=== PATIENT | male | born 1955 | race Caucasian/White ===

== ENCOUNTER 2020-12-08 06:24 | Day surgery (SDC) | payer OTHER ==
[2020-12-07 09:58] LABS: COVID AG,FIA SOURCE NASOPHARYNGEAL
[~2020-12-08] VITALS: Ht 165.1 cm; Wt 74.5 kg
[~2020-12-08 06:24] MED LIST: SODIUM CHLORIDE 0.9% 1,000 ML ONE
[2020-12-08] MEDS ORDERED: LIDOCAINE 2% 30 ML JELLY TP ONE (06:25)
[2020-12-08] MEDS ORDERED: BENZOCAINE 20% 50 MCG/SPRAY 57 GM TP ONE (06:25)
[2020-12-08] MEDS ORDERED: ALBUTEROL SULFATE 2.5 MG/0.5 ML NEB SOLUTION NEB ONE (06:25)
[2020-12-08] MEDS ORDERED: SODIUM CHLORIDE 0.9% 1,000 ML IV ONE (06:30)
[2020-12-08] MEDS ORDERED: MIDAZOLAM HCL 5 MG/ML VIAL ONE (08:09)
[2020-12-08] MEDS ORDERED: FentaNYL CITRATE PF 100 MCG/2 ML VIAL ONE (08:09)
[2020-12-08] MEDS ORDERED: SEVE800 PO (08:27)
[2020-12-08] MEDS ORDERED: METO25 PO (08:27)
[2020-12-08] MEDS ORDERED: ATOR40TA28 PO (08:27)
[2020-12-08] MEDS ORDERED: MONT-35 PO (08:27)
[2020-12-08] MEDS ORDERED: FURO-151 PO (08:27)
[2020-12-08] MEDS ORDERED: ALLO100T PO (08:27)
[2020-12-08] MEDS ORDERED: AMLO10TA55 PO (08:27)
[2020-12-08] MEDS ORDERED: ASPI81TA39 PO (08:27)
[2020-12-08] MEDS ORDERED: CALC0.25 PO (08:27)
[2020-12-08] MEDS ORDERED: FAMO20 PO (08:27)
[2020-12-08] MEDS ORDERED: MethylPREDNISolone SOD SUCC 125 MG/2 ML VIAL IVP ONE (09:30)
[2020-12-08] MEDS ORDERED: MethylPREDNISolone SOD SUCC 125 MG/2 ML VIAL ONE (09:43)
[2020-12-08] MEDS ORDERED: OXYGEN THERAPY IH SCH (20:00)
== END 2020-12-08 11:05 | disposition home or self-care (01) ==
LOC: SURGERY 06:24
PROVIDERS: ATTEND Internal Medicine Critical Care Medicine
DX: J38.4 Edema of larynx (principal); B37.0 Candidal stomatitis; I10 Essential (primary) hypertension; Z98.890 Other specified postprocedural states; Z79.899 Other long term (current) drug therapy
CPT/HCPCS: 31623; 31624; 71045; 87015; 87070; 87101; 87205; 87206; 87220; 87426; 88108; 88184; 88185; 88312; C9803; J2250; J2930; J3010; J7030; J7613

== ENCOUNTER 2024-02-17 16:27 | Emergency (ER) | payer OTHER ==
[~2024-02-17] VITALS: Ht 162.6 cm; Wt 81.0 kg
[~2024-02-17 16:27] MED LIST changes: +ALLO100T PO; +AMLO10TA55 PO; +ASPI81TA39 PO; +ATOR40TA28 PO; +CALC0.25 PO; +FAMO20 PO; +FURO-151 PO; +METO25 PO; +MONT-35 PO; +SEVE800 PO; -SODIUM CHLORIDE 0.9% 1,000 ML ONE
[2024-02-17 16:30] VITALS: BP 154/60; PULSE 88; RESP 18; TEMP 97.9; O2SAT 99
[2024-02-17] MEDS ORDERED: CINA30TA5 PO (16:36)
[2024-02-17] MEDS ORDERED: FURO40TA5 PO (16:36)
[2024-02-17] MEDS ORDERED: ATOR40TA71 PO (16:36)
[2024-02-17] MEDS ORDERED: ASPI-1444 PO (16:36)
[2024-02-17] MEDS ORDERED: SUCR500T PO (16:36)
[2024-02-17] MEDS ORDERED: MONT-40 PO (16:36)
[2024-02-17] MEDS ORDERED: LOSA-381 PO (16:36)
== END 2024-02-17 17:44 | disposition left against medical advice (07) ==
LOC: EMS 16:27
DX: S01.21XA Laceration without foreign body of nose, initial encounter (principal); Z53.21 Procedure and treatment not carried out due to patient leaving prior to being seen by health care provider; W10.8XXA Fall (on) (from) other stairs and steps, initial encounter; Y93.89 Activity, other specified; Y92.89 Other specified places as the place of occurrence of the external cause; Y99.8 Other external cause status